=== PATIENT | male | born 1955 | race Caucasian/White ===

== ENCOUNTER 2021-07-07 08:00 | Outpatient (CLI) | payer SELFPAY ==
[2021-07-07 18:42] LABS: BASOPHILS # (AUTO) 0.1 10^3/uL (0.0-0.1); BASOPHILS % (AUTO) 0.7 %; EOSINOPHILS # (AUTO) 0.2 10^3/uL (0.0-0.7); EOSINOPHILS % (AUTO) 3.1 %; HCT - HEMATOCRIT 47.6 % (42.0-52.0); HGB - HEMOGLOBIN 15.8 g/dL (14.0-18.0); LYMPHOCYTES # (AUTO) 2.3 10^3/uL (1.5-3.5); LYMPHOCYTES % (AUTO) 30.4 %; MEAN CORPUSCULAR HEMOGLOBIN 31.3 pg (27.0-31.0); MEAN CORPUSCULAR HGB CONC 33.2 g/dL (32.0-36.0); MEAN CORPUSCULAR VOLUME 94.3 fL (80.0-94.0); MEAN PLATELET VOLUME 10.5 fL (7.4-11.4); MONOCYTES # (AUTO) 0.7 10^3/uL (0.0-1.0); MONOCYTES % (AUTO) 8.7 %; NEUTROPHILS # (AUTO) 4.3 10^3/uL (1.5-6.6); NEUTROPHILS % (AUTO) 56.8 %; PLT - PLATELET COUNT 200 10^3/uL (130-450); RED BLOOD COUNT 5.05 10^6/uL (4.70-6.10); RED CELL DISTRIBUTION WIDTH 13.2 % (12.0-15.0); WHITE BLOOD COUNT 7.5 x10^3/uL (4.8-10.8)
[2021-07-07 19:28] LABS: PSA TOTAL 4.31 ng/mL (0.000-2.000)
[2021-07-07 19:30] LABS: ALBUMIN 4.7 g/dL (3.2-5.5); ALBUMIN/GLOBULIN RATIO 1.3 (1.0-2.2); ALKALINE PHOSPHATASE 72 IU/L (42-121); ALT ALANINE AMINOTRANSFERASE 20 IU/L (10-60); AST ASPARTATE AMINOTRANSFERASE 21 IU/L (10-42); BILIRUBIN,TOTAL 0.6 mg/dL (0.2-1.0); BUN - BLOOD UREA NITROGEN 10 mg/dL (6-20); CALCIUM 9.4 mg/dL (8.5-10.3); CARBON DIOXIDE - CO2 31 mmol/L (21-32); CHLORIDE 101 mmol/L (101-111); CHOL/HDL RATIO 7.6 (<5.0); CHOLESTEROL 258 mg/dL; CREATININE 0.9 mg/dL (0.6-1.2); GFR - MDRD 84 (>89); GLUCOSE 92 mg/dL (70-100); HDL CHOLESTEROL 34 mg/dL; LDL CHOLESTEROL,CALCULATED 162 mg/dL; LDL/HDL RATIO 4.8 (<3.6); POTASSIUM 3.9 mmol/L (3.5-5.0); SODIUM 141 mmol/L (135-145); TOTAL PROTEIN 8.3 g/dL (6.7-8.2); TRIGLYCERIDES 311 mg/dL; VLDL CHOLESTEROL 62 mg/dL
[2021-07-07 19:58] LABS: PSA FREE 0.95 ng/mL (0.16-2.81)
[2021-07-08 10:41] LABS: HEPATITIS C ANTIBODY NON-REACTIVE (NON-REACTIVE)
== END 2021-07-07 23:59 | disposition home or self-care (01) ==
LOC: LAB.R 08:00
PROVIDERS: ATTEND Internal Medicine
DX: N40.0 Benign prostatic hyperplasia without lower urinary tract symptoms (principal); N21.0 Calculus in bladder; R53.83 Other fatigue; Z11.59 Encounter for screening for other viral diseases; K42.9 Umbilical hernia without obstruction or gangrene
CPT/HCPCS: 80053; 80061; 83721; 84153; 84154; 84403; 84443; 85025; 86803

== ENCOUNTER 2022-02-07 11:23 | Emergency (ER) | payer MEDICARE, OTHER ==
[2022-02-07 11:47] LABS: BASOPHILS # (AUTO) 0.1 10^3/uL (0.0-0.1); BASOPHILS % (AUTO) 0.6 %; EOSINOPHILS # (AUTO) 0.2 10^3/uL (0.0-0.7); EOSINOPHILS % (AUTO) 2.8 %; HCT - HEMATOCRIT 46.9 % (42.0-52.0); HGB - HEMOGLOBIN 15.3 g/dL (14.0-18.0); LYMPHOCYTES # (AUTO) 2.6 10^3/uL (1.5-3.5); LYMPHOCYTES % (AUTO) 33.4 %; MEAN CORPUSCULAR HEMOGLOBIN 30.5 pg (27.0-31.0); MEAN CORPUSCULAR HGB CONC 32.6 g/dL (32.0-36.0); MEAN CORPUSCULAR VOLUME 93.6 fL (80.0-94.0); MEAN PLATELET VOLUME 10.3 fL (7.4-11.4); MONOCYTES # (AUTO) 0.6 10^3/uL (0.0-1.0); NEUTROPHILS # (AUTO) 4.3 10^3/uL (1.5-6.6); NEUTROPHILS % (AUTO) 54.9 %; PLT - PLATELET COUNT 177 10^3/uL (130-450); RED BLOOD COUNT 5.01 10^6/uL (4.70-6.10); RED CELL DISTRIBUTION WIDTH 13.1 % (12.0-15.0); WHITE BLOOD COUNT 7.8 x10^3/uL (4.8-10.8)
[2022-02-07] MEDS ORDERED: fentaNYL 100 MCG/2 ML VIAL IVP STA (11:57)
[2022-02-07 12:00] LABS: ALBUMIN 4.3 g/dL (3.2-5.5); ALBUMIN/GLOBULIN RATIO 1.2 (1.0-2.2); BILIRUBIN,TOTAL 0.6 mg/dL (0.2-1.0); CALCIUM 9.5 mg/dL (8.5-10.3); POTASSIUM 3.6 mmol/L (3.5-5.0); TOTAL PROTEIN 7.8 g/dL (6.7-8.2)
--- NOTE | 2022-02-07 12:08 | ED Physician Documentation ---
PD HPI DYSPNEA - Stated complaint Stated Complaint: RIB/CHEST PAIN - Chief complaint Chief Complaint: Cardiac - Additional information Additional information: 66-year-old male presents to the emergency department for evaluation of sudden onset severe epigastric pain that he noticed woke him up from sleep last night. It is nonradiating and described as sharp. He is denying chest pain or shortness of air. This gentleman is a 2 pack/day tobacco user and is not currently being treated by physician for any medical conditions though he was recently evaluated by Dr. Gillespie for an umbilical hernia. Historically his reports that he has a history of bladder stones that have required surgery due to outlet obstruction in the past though none recently. Patient denies any melena or hematochezia. States he had a bowel movement yest erday that was normal for him. No pertinent past surgical history with the exception of the bladder and prostate surgeries Review of Systems Constitutional: reports: Reviewed and negative Nose: reports: Reviewed and negative Throat: reports: Reviewed and negative Cardiac: denies: Chest pain / pressure Respiratory: denies: Dyspnea GI: reports: Reviewed and negative. denies: Nausea, Vomiting, Constipation, Diarrhea, Hematemesis : reports: Reviewed and negative Skin: reports: Reviewed and negative Musculoskeletal: reports: Reviewed and negative PD PAST MEDICAL HISTORY - Present Medications Home Medications: Ambulatory Orders Medication Instructions Recorded Confirmed HYDROcod/ACETAM 5/325 [[place] 5/325] 1 tab PO Q6H PRN #10 tablet 02/07/22 - Allergies Allergies/Adverse Reactions: Allergies Allergy/AdvReac Type Severity Reaction Status Date / Time No Known Drug Allergies Allergy Verified 02/07/22 11:33 PD ED PE NORMAL - General General: Alert and oriented X 3, Well developed/nourished. No: No acute distress (Patient appears quite uncomfortable. Moaning) - HEENT HEENT: Atraumatic, Ears normal, Moist mucous membranes - Neck Neck: Supple, no meningeal sign, No adenopathy - Cardiac Cardiac: RRR, No murmur - Respiratory Respiratory: No respiratory distress - Abdomen Abdomen: Normal bowel sounds, Soft. No: Non tender (Epigastric abdominal pain without guarding or rebound.) - Back Back: No CVA TTP, No spinal TTP - Derm Derm: Normal color, Warm and dry - Extremities Extremities: No deformity, No tenderness to palpate, Normal ROM s pain - Neuro Neuro: Alert and oriented X 3, animal assistant 2-12 intact Eye Opening: Spontaneous Motor: Obeys Commands Verbal: Oriented GCS Score: 15 Results - Vitals Vitals: Vital Signs - 24 hr 02/07/22 02/07/22 02/07/22 11:30 12:13 12:34 Temperature 36.8 C Heart Rate 70 85 84 Respiratory 24 18 19 Rate Blood Pressure 212/122 H 152/100 H 171/113 H O2 Saturation 97 94 93 02/07/22 02/07/22 02/07/22 13:13 13:30 14:30 Temperature Heart Rate 76 81 75 Respiratory 17 18 19 Rate Blood Pressure 161/86 H 166/102 H 140/91 H O2 Saturation 99 95 96 Oxygen O2 Source Room air - EKG (time done) 1130 Rate: Rate (enter#) (85) Rhythm: NSR Hague: RAD Intervals: Normal ME QRS: Normal Ischemia: Normal ST segments Compare to prior EKG: Old EKG unavailable Computer interpretation: Agree with computer - Labs Labs: Laboratory Tests 02/07/22 02/07/22 02/07/22 11:38 11:38 11:38 WBC 7.8 RBC 5.01 Hgb 15.3 Hct 46.9 MCV 93.6 MCH 30.5 MCHC 32.6 RDW 13.1 Plt Count 177 MPV 10.3 Neut # (Auto) 4.3 Lymph # (Auto) 2.6 [place] # (Auto) 0.6 Eos # (Auto) 0.2 Baso # (Auto) 0.1 Absolute Nucleated RBC 0.00 Nucleated RBC % 0.0 Sodium 141 Potassium 3.6 Chloride 100 L Carbon Dioxide 31 Anion Gap 10.0 BUN 7 Creatinine 1.0 Estimated GFR (MDRD) 75 L Glucose 123 H Calcium 9.5 Total Bilirubin 0.6 AST 19 ALT 21 Alkaline Phosphatase 78 Troponin I High Sens 8.6 B-Natriuretic Peptide Total Protein 7.8 Albumin 4.3 Globulin 3.5 Albumin/Globulin Ratio 1.2 Lipase 34 02/07/22 11:38 WBC RBC Hgb Hct MCV MCH MCHC RDW Plt Count MPV Neut # (Auto) Lymph # (Auto) [place] # (Auto) Eos # (Auto) Baso # (Auto) Absolute Nucleated RBC Nucleated RBC % Sodium Potassium Chloride Carbon Dioxide Anion Gap BUN Creatinine Estimated GFR (MDRD) Glucose Calcium Total Bilirubin AST ALT Alkaline Phosphatase Troponin I High Sens B-Natriuretic Peptide 24 Total Protein Albumin Globulin Albumin/Globulin Ratio Lipase - Rads (name of study) CT abd Radiology: Final report received (Gallstones are seen yet without additional CT abnormality of the gallbladder seen. In this patient with epigastric pain please consider follow-up right upper quadrant ultrasound if there is a strong clinical concern for cholecystitis) abd US Radiology: Other (Per development technologist mild gallbladder wall thickening but no pericholecystic fluid. Multiple gallstones seen within the bladder. Negative for acute cholecystitis) PD MEDICAL DECISION MAKING - ED course Complexity details: considered differential, d/w patient, d/w family ED course: 66-year-old male presents to the emergency department for evaluation of sudden onset epigastric abdominal pain no nausea or vomiting no melena. He has not seen a doctor in quite some time though he does have a known umbilical hernia. On presentation the pain was reproducible in the epigastrium. He was modestly hypertensive on presentation 200/100. His blood pressures improved after we gave him a dose of fentanyl Milk of Magnesia and lidocaine for analgesia. CBC and electrolytes did not show any acute worrisome findings. Specifically no LFT abnormalities. A CT of the abdomen showed multiple gallstones without secondary findings to suggest cholecystitis. An abdominal ultrasound was then performed and it does show some mild gallbladder wall thickening but no pericholecystic fluid. Multiple stones within the gallbladder but no obstructing stone seen. I did discuss this finding with the patient and his . They will follow-up with Dr. Gillespie to obtain referral to surgery. We discussed the usual diet associated with cholelithiasis as well as the emergent return precautions. I am prescribing a short course of short-acting opioid pain medication for this patient. I have reviewed the patients ROCKET ENGINE TESTER and no concerning findings were noted. I have discussed that the opioids are for short term therapy only, and will not be refilled from the ED. Departure - Departure Disposition: 01 Home, Self Care Clinical Impression: Cholelithiasis Qualifiers: Cholelithiasis location: gallbladder Cholecystitis presence: without cholecystitis Biliary obstruction: without biliary obstruction Qualified Code(s): K80.20 - Calculus of gallbladder without cholecystitis without obstruction Condition: Stable Record reviewed to determine appropriate education?: Yes Instructions: Gallstones Dc Prescriptions: HYDROcod/ACETAM 5/325 [[place] 5/325] 1 tab PO Q6H PRN #10 tablet PRN Reason: Pain Comments: Maurice you do have gallstones. This is most likely the cause of your upper abd ominal pain this morning. I suspect that you are passing a gallstone as the reason for your symptoms. It is important you speak with Dr. Gillespie in order to obtain a referral to surgery. In order to help manage the symptoms of gallstones diet is very important. You should eat lots of leafy green vexed doubles and any meat that you eat should be lean protein such as boiled chicken. We have sent a prescription for some Hydrocodone also known as [place] to [facility] in [place]. You can take this 1 or twice a day for the abdominal pain however will cause significant constipation so take MiraLAX while taking the hydrocodone. Return to the ER if you have suddenly severe or different abdominal pain, uncontrolled vomiting, any black or bloody stools. I am prescribing a short course of narcotic pain medication for you. These are potentially dangerous and addictive medications that should be used carefully. These medications may constipate you. Take an deim-elv-xwfshyj stool softener (docusate) twice daily with plenty of water while taking these medications. If you go 24 hours without a bowel movement, take rlnp-jph-qyttfmz miralax, per package instructions. Do not drink or drive while taking these medications. If you received narcotic or sedating medications while in the emergency department, do not drive for 24 hours. Store this medication in a safe, secure place and out of reach of children. It is a violation of federal law to give or sell this medication to another person or to use in a manner other than prescribed. The ED will not refill narcotic prescriptions, including prescriptions lost or stolen. To dispose of unwanted medications: 1. [facility] at [address] in [place] has a medication drop box. They accept prescription medications (in pill form) Tuesday through Tuesday 9:00 a.m. to 5:00 p.m. 2. The [facility] Police Department accepts prescription medications (in pill form only) for disposal year round. Call for more information. 3. Contact the [facility] for the next [facility] sponsored prescription drug collection event. , [phone], or [phone]; Note that many narcotic pain relievers also contain Tylenol/acetaminophen. Please ensure that your total dose of acetaminophen from all sources does not exceed 3 g (3000 mg) per day.
--- NOTE | 2022-02-07 12:12 | XRAY Report ---
PROCEDURE: Chest 1 View X-Ray INDICATIONS: Chest pain TECHNIQUE: One view of the chest was acquired. COMPARISON: None. FINDINGS: Surgical changes and devices: None. Lungs and pleura: No pleural effusions or pneumothorax. Lungs are clear. Mediastinum: Mediastinal contours appear normal. Heart size is normal. Bones and chest wall: No suspicious bony lesions. Overlying soft tissues appear unremarkable. IMPRESSION: Portable chest within normal limits for age. Reviewed by: Tomer Villalpando MD on 02/07/2022 11:10 AM [facility] Approved by: Tomer Villalpando MD on 02/07/2022 11:10 AM [facility] Station ID: [id number]
[2022-02-07] MEDS ORDERED: LIDOCAINE VISCOUS 2% 15 ML UDC MM STA (12:16)
[2022-02-07] MEDS ORDERED: MAGNESIUM HYDROXIDE 2,400 MG/30 ML UDC PO STA (12:16)
[2022-02-07] MEDS ORDERED: PANTOPRAZOLE 40 MG VIAL IVP STA (12:16)
[2022-02-07] MEDS ORDERED: SODIUM CHLORIDE 0.9% 1,000 ML IV STA (12:18)
[2022-02-07] MEDS ORDERED: iohexoL-300 100 ML VIAL ONE (12:32)
--- NOTE | 2022-02-07 13:07 | CT Report ---
PROCEDURE: ABDOMEN/PELVIS W INDICATIONS: epigastric abd pain CONTRAST: 100ml omni 300 TECHNIQUE: After the administration of IV contrast, 5 mm thick sections acquired from the diaphragms to the symp hysis. 5 mm thick coronal and sagittal reformats were acquired. For radiation dose reduction, the f ollowing was used: automated exposure control, adjustment of mA and/or kV according to patient size. COMPARISON: Correlation is made with the accompanying chest radiograph, 02/07/2022. FINDINGS: Image quality: Excellent. ABDOMEN: Lung bases: Lung bases are clear. Heart size is normal. Solid organs: Liver and spleen are normal in size and enhancement. Gallbladder demonstrates layerin g gallstones within its lumen. The gallbladder wall thickening or pericholecystic fluid can be seen b y CT. Biliary system is non dilated. Pancreas enhances normally. There is generalized nodularity se en in the left adrenal gland. No delroy adrenal nodules. Kidneys demonstrate normal size and enhancem ent, without hydronephrosis. Peritoneum and bowel: Bowel loops demonstrate normal wall thickness and caliber. No free fluid or a ir. Diverticulosis can be seen, without delroy findings of active diverticulitis. Nodes and vessels: No retroperitoneal or mesenteric adenopathy by size criteria. The IVC demonstrat es normal size. The distal abdominal aorta is minimally aneurysmal, 3.1 cm AP. Atherosclerotic calci fication is seen. Miscellaneous: There are is a moderately sized fat-containing periumbilical hernia. PELVIS: Genitourinary: Bladder wall thickness is normal. Miscellaneous: No inguinal adenopathy. Bilateral fat-containing inguinal hernias are seen, right la rger than left. Bones: No suspicious bony lesions. No vertebral body compression fractures. Focal lower lumbar spi ne degenerative changes are seen, with moderate disc space narrowing at L4-5 and L5. At L5-S1, there is grade 1 anterolisthesis, with associated bilateral L5 pars defects IMPRESSION: Gallstones are seen, yet without additional CT abnormality of the gallbladder seen. In t his patient with epigastric pain, please consider a follow-up right upper quadrant ultrasound, if the re is strong clinical concern for cholecystitis. Minimal abdominal aortic aneurysm, 3.1 cm AP. Incidental note is made of: Fat-containing periumbilical hernia Diverticulosis, without findings of active diverticulitis. Focal lower lumbar spine degenerative change L5 pars defects with grade 1 L5-S1 anterolisthesis Bilateral fat-containing inguinal hernias Reviewed by: Tomer Villalpando MD on 02/07/2022 12:05 PM [facility] Approved by: Tomer Villalpando MD on 02/07/2022 12:05 PM [facility] Station ID: [id number]
[2022-02-07] MEDS ORDERED: iohexoL-300 100 ML VIAL IVP ONE (13:14)
[2022-02-07 14:32] VITALS: BP 140/91
--- NOTE | 2022-02-07 15:39 | Ultrasound Report ---
PROCEDURE: Abdomen Limited INDICATIONS: gallstones on CT; ? acute choley TECHNIQUE: Real-time focused scanning was performed of the abdomen, with image documentation. COMPARISON: Correlation is made with abdominal and pelvis CT, 02/07/2022 FINDINGS: The liver demonstrates enlarged size. The liver demonstrates moderately increased echogen icity, which limits ultrasound sensitivity for detection of masses. Gallstones are seen within the gallbladder neck. Gallbladder wall polyps are seen near the gallbladde r fundus The gallbladder wall is thickened at 5 mm. There is no specific pericholecystic fluid. The s onographic Rios's sign is negative. No biliary ductal dilatation is seen. The common bile duct measures 7 mm. The visualized pancreas is within normal limits. The visualized right kidney is unremarkable. The proximal aorta demonstrates normal caliber. The IVC is patent. IMPRESSION: Gallstones and a thickened gallbladder wall can be seen, without additional specific signs of cholecy stitis. No biliary dilatation. Increased liver echogenicity is seen. This is nonspecific, yet it is most commonly attributed to fatt y infiltration. Note: Concordant preliminary findings given by the clinical trials assistant upon the completion of the examination to Jennifer Delaney. Reviewed by: Tomer Villalpando MD on 02/07/2022 2:38 PM [facility] Approved by: Tomer Villalpando MD on 02/07/2022 2:38 PM [facility] Station ID: [id number]
== END 2022-02-07 15:36 | disposition home or self-care (01) ==
LOC: ED 11:23
DX: K80.20 Calculus of gallbladder without cholecystitis without obstruction (principal); F17.200 Nicotine dependence, unspecified, uncomplicated
CPT/HCPCS: 36415; 71045; 74177; 76705; 80053; 83690; 83880; 84484; 85025; 93005; 96374; 96375; 99284; A9270; Q9967

== ENCOUNTER 2022-02-15 12:44 | Emergency (ER) | payer MEDICARE ==
[2022-02-15 13:44] LABS: BASOPHILS % (AUTO) 0.5 %; EOSINOPHILS # (AUTO) 0.1 10^3/uL (0.0-0.7); EOSINOPHILS % (AUTO) 1.2 %; HCT - HEMATOCRIT 44.9 % (42.0-52.0); HGB - HEMOGLOBIN 14.7 g/dL (14.0-18.0); LYMPHOCYTES # (AUTO) 1.1 10^3/uL (1.5-3.5); LYMPHOCYTES % (AUTO) 26.2 %; MEAN CORPUSCULAR HEMOGLOBIN 30.6 pg (27.0-31.0); MEAN CORPUSCULAR HGB CONC 32.7 g/dL (32.0-36.0); MEAN CORPUSCULAR VOLUME 93.3 fL (80.0-94.0); MEAN PLATELET VOLUME 10.3 fL (7.4-11.4); MONOCYTES # (AUTO) 0.6 10^3/uL (0.0-1.0); MONOCYTES % (AUTO) 14.3 %; NEUTROPHILS # (AUTO) 2.5 10^3/uL (1.5-6.6); NEUTROPHILS % (AUTO) 57.6 %; PLT - PLATELET COUNT 144 10^3/uL (130-450); RED BLOOD COUNT 4.81 10^6/uL (4.70-6.10); RED CELL DISTRIBUTION WIDTH 12.9 % (12.0-15.0); WHITE BLOOD COUNT 4.3 x10^3/uL (4.8-10.8)
[2022-02-15 13:58] LABS: ALBUMIN 4.3 g/dL (3.2-5.5); ALBUMIN/GLOBULIN RATIO 1.3 (1.0-2.2); BILIRUBIN,TOTAL 0.5 mg/dL (0.2-1.0); CALCIUM 8.9 mg/dL (8.5-10.3); TOTAL PROTEIN 7.6 g/dL (6.7-8.2)
--- NOTE | 2022-02-15 15:55 | ED Physician Documentation ---
PD HPI ABD PAIN - Stated complaint Stated Complaint: CHEST & BACK PX - Chief complaint Chief Complaint: Abd Pain - History obtained from History obtained from: Patient - History of Present Illness Timing - onset: How many weeks ago (1) Timing - duration: Weeks (1) Timing - details: Gradual onset, Intermittant Pain level max: 8 Pain level now: 0 Quality: Pain Location: RUQ, Epigastric Radiation: No: Chest, , Lower back, Left flank, Left shoulder, Right flank, Right shoulder, Upper back Improved by: Meds (vicodin) Worsened by: Eating Associated symptoms: No: Fever, Nausea, Vomiting, Hematemesis, Diarrhea, Constipation, Hematochezia, Dysuria - Additional information Additional information: Patient is a 66-year-old male who complains of epigastric abdominal pain. Worse with eating and drinking. Better with hydrocodone. He was diagnosed with gallstones about 10 days ago. He has a referral for surgery but has not seen them yet. He complains of continued abdominal pain. No fevers. No chills. No vomiting. Review of Systems Ten Systems: 10 systems reviewed and negative Constitutional: denies: Fever, Chills Nose: denies: Rhinorrhea / runny nose, Congestion Throat: denies: Sore throat Cardiac: denies: Chest pain / pressure, Palpitations Respiratory: denies: Dyspnea, Cough, Wheezing Skin: denies: Rash Musculoskeletal: denies: Neck pain, Back pain Neurologic: denies: Headache PD PAST MEDICAL HISTORY - Past Medical History Past Medical History: No - Present Medications Home Medications: Ambulatory Orders Medication Instructions Recorded Confirmed HYDROcod/ACETAM 5/325 [[place] 5/325] 1 tab PO Q6H PRN #10 tablet 02/07/22 Esomeprazole Magnesium [Nexium] 40 mg PO DAILY #30 cap 02/15/22 Famotidine [Pepcid] 20 mg PO BID #60 tablet 02/15/22 HYDROcod/ACETAM 5/325 [[place] 5/325] 1 - 2 ea PO Q6H PRN #14 tablet 02/15/22 Sucralfate [Carafate] 1 gm PO ACHS #60 tablet 02/15/22 - Allergies Allergies/Adverse Reactions: Allergies Allergy/AdvReac Type Severity Reaction Status Date / Time No Known Drug Allergies Allergy Verified 02/15/22 12:49 - Living Situation Living Situation: reports: With family Living Arrangement: reports: At home - Social History Does the pt smoke?: Yes Smoking Status: Current every day smoker PD ED PE NORMAL - Vitals Vital signs reviewed: Yes - General General: Alert and oriented X 3, No acute distress - HEENT HEENT: Moist mucous membranes - Neck Neck: Supple, no meningeal sign - Cardiac Cardiac: RRR, Strong equal pulses - Respiratory Respiratory: No respiratory distress, Clear bilaterally - Abdomen Abdomen: Soft, Non tender, Non distended - Derm Derm: Warm and dry - Neuro Neuro: Alert and oriented X 3 - Psych Psych: Normal mood, Normal affect Results - Vitals Vitals: Vital Signs - 24 hr 02/15/22 02/15/22 02/15/22 12:49 15:45 16:03 Temperature 36.5 C Heart Rate 100 94 88 Respiratory 16 18 16 Rate Blood Pressure 160/90 H 147/91 H 123/75 O2 Saturation 94 96 98 Oxygen O2 Source Room air - Labs Labs: Laboratory Tests 02/15/22 02/15/22 13:40 13:40 WBC 4.3 L RBC 4.81 Hgb 14.7 Hct 44.9 MCV 93.3 MCH 30.6 MCHC 32.7 RDW 12.9 Plt Count 144 MPV 10.3 Neut # (Auto) 2.5 Lymph # (Auto) 1.1 L [place] # (Auto) 0.6 Eos # (Auto) 0.1 Baso # (Auto) 0.0 Absolute Nucleated RBC 0.00 Nucleated RBC % 0.0 Sodium 139 Potassium 4.0 Chloride 99 L Carbon Dioxide 31 Anion Gap 9.0 BUN 10 Creatinine 1.0 Estimated GFR (MDRD) 75 L Glucose 119 H Calcium 8.9 Total Bilirubin 0.5 AST 25 ALT 30 Alkaline Phosphatase 76 Total Protein 7.6 Albumin 4.3 Globulin 3.3 Albumin/Globulin Ratio 1.3 Lipase 32 PD MEDICAL DECISION MAKING - ED course Complexity details: reviewed old records, re-evaluated patient, considered differential, d/w patient ED course: Patient is well-appearing, nontoxic. Afebrile. No acute findings on laboratory testing. Reviewed his prior records. History could be compatible with gastritis versus GERD as well. He did seem to improve with a GI cocktail last visit. He is currently asymptomatic so cannot trial this again. We will place him on Carafate, an H2 beht and PPI for home. We will also prescribe pain medication for home. No evidence of cholecystitis on laboratory testing or clinically. Abdomen is soft, nontender nondistended. Negative Rios sign. We will have him follow-up with his doctor for further care. Patient counseled regarding signs and symptoms for which I believe and urgent re-evaluation would be necessary. Patient with good understanding of and agreement to plan and is comfortable going home at this time This document was made in part using voice recognition software. While efforts are made to proofread this document, sound alike and grammatical errors may occur. Departure - Departure Disposition: Home, Self Care Clinical Impression: Cholelithiasis Qualifiers: Cholelithiasis location: gallbladder Cholecystitis presence: without cholecystitis Biliary obstruction: with biliary obstruction Qualified Code(s): K80.21 - Calculus of gallbladder without cholecystitis with obstruction Abdominal pain Qualifiers: Abdominal location: epigastric Qualified Code(s): R10.13 - Epigastric pain Condition: Good Instructions: ED Abdominal Pain Gallstone Poss, ED GERD, ED Gallstone W Biliary Colic Follow-Up: Marina Gillespie MD [Provider Admit Priv/Credential] - Within 1 week Prescriptions: Sucralfate [Carafate] 1 gm PO ACHS #60 tablet Esomeprazole Magnesium [Nexium] 40 mg PO DAILY #30 cap HYDROcod/ACETAM 5/325 [[place] 5/325] 1 - 2 ea PO Q6H PRN #14 tablet PRN Reason: Pain Famotidine [Pepcid] 20 mg PO BID #60 tablet Comments: Please follow-up with your doctor for further care. Return if you worsen. We will place you on medication for your stomach as well in case this could be gastritis versus an ulcer. Please avoid fatty foods, fried foods, spicy foods, cigarettes, alcohol, caffeine. Avoid butter, cheese, oil. Your prescriptions were sent to the [facility] pharmacy. Your doctor may want to refer you for an endoscopy as well to evaluate the lining of your stomach. I am prescribing a short course of narcotic pain medication for you. These are potentially dangerous and addictive medications that should be used carefully. These medications may constipate you. Take an yhbu-voi-ufwkjqx stool softener (docusate) twice daily with plenty of water while taking these medications. If you go 24 hours without a bowel movement, take yuba-wbs-cxycaln miralax, per package instructions. Do not drink or drive while taking these medications. If you received narcotic or sedating medications while in the emergency department, do not drive for 24 hours. Store this medication in a safe, secure place and out of reach of children. It is a violation of federal law to give or sell this medication to another person or to use in a manner other than prescribed. The ED will not refill narcotic prescriptions, including prescriptions lost or stolen. To dispose of unwanted medications: 1. [facility] [address] in [place] has a medication drop box. They accept prescription medications (in pill form) Tuesday through Tuesday 9:00 a.m. to 5:00 p.m. 2. The [facility] Department accepts prescription medications (in pill form only) for disposal year round. Call for more information. 3. Contact the [facility] for the next [facility] sponsored prescription drug collection event. , [phone], or [phone]; Discharge Date/Time: 02/15/22 16:05
[2022-02-15 16:05] VITALS: BP 123/75
== END 2022-02-15 16:05 | disposition home or self-care (01) ==
LOC: ED 12:44
DX: K80.21 Calculus of gallbladder without cholecystitis with obstruction (principal); F17.200 Nicotine dependence, unspecified, uncomplicated
CPT/HCPCS: 36415; 80053; 83690; 85025; 99282; 99284

== ENCOUNTER 2022-08-15 22:57 | Emergency (ER) | payer MEDICARE ==
[2022-08-15] MEDS ORDERED: MORPHINE 2 MG/ML CARPUJECT IVP STA (23:40)
[2022-08-15] MEDS ORDERED: ONDANSETRON 4 MG/2 ML VIAL IVP STA (23:40)
[2022-08-15 23:51] LABS: BASOPHILS # (AUTO) 0.1 10^3/uL (0.0-0.1); BASOPHILS % (AUTO) 0.6 %; EOSINOPHILS # (AUTO) 0.3 10^3/uL (0.0-0.7); EOSINOPHILS % (AUTO) 2.5 %; HCT - HEMATOCRIT 45.4 % (42.0-52.0); HGB - HEMOGLOBIN 14.7 g/dL (14.0-18.0); LYMPHOCYTES # (AUTO) 2.6 10^3/uL (1.5-3.5); MEAN CORPUSCULAR HEMOGLOBIN 29.8 pg (27.0-31.0); MEAN CORPUSCULAR HGB CONC 32.4 g/dL (32.0-36.0); MEAN CORPUSCULAR VOLUME 91.9 fL (80.0-94.0); MEAN PLATELET VOLUME 10.4 fL (7.4-11.4); MONOCYTES # (AUTO) 0.7 10^3/uL (0.0-1.0); MONOCYTES % (AUTO) 6.8 %; NEUTROPHILS % (AUTO) 65.6 %; PLT - PLATELET COUNT 209 10^3/uL (130-450); RED BLOOD COUNT 4.94 10^6/uL (4.70-6.10); RED CELL DISTRIBUTION WIDTH 13.2 % (12.0-15.0); WHITE BLOOD COUNT 10.7 x10^3/uL (4.8-10.8)
--- OUTSIDE RECORDS SUMMARY | 2022-08-15 23:51 | EXTERNAL MEDICAL SUMMARY RPT | Continuity of Care Document ---
Author Name Unknown Address [address] [place] [address] Phone Organization [facility] Address [address] [phone] Phone Problems date description facility 2022-07-05 09:33 Calculus of gallblad nereyda without cholecystitis without obstru Located Within [facility] 2022-07-05 09:36 [facility]
[2022-08-15 23:55] LABS: INR 0.9 (0.8-1.2); PT - PROTHROMBIN TIME 10.4 secs (9.9-12.6)
[2022-08-16 00:03] LABS: ALBUMIN 3.9 g/dL (3.2-5.5); BILIRUBIN,TOTAL 0.6 mg/dL (0.2-1.0); CALCIUM 8.9 mg/dL (8.5-10.3); CREATININE 1.1 mg/dL (0.6-1.2); POTASSIUM 3.7 mmol/L (3.5-5.0); TOTAL PROTEIN 7.8 g/dL (6.7-8.2)
[2022-08-16 00:52] LABS: BILIRUBIN,URINE NEGATIVE (NEGATIVE); GLUCOSE, URINE (UA) 100 mg/dL (NEGATIVE); KETONES,URINE (UA) NEGATIVE (NEGATIVE); OCCULT BLOOD,URINE LARGE (NEGATIVE); UROBILINOGEN,URINE 0.2 (NORMAL) E.U./dL (NORMAL)
[2022-08-16 00:55] LABS: CLARITY,URINE BLOODY (CLEAR)
[2022-08-16 01:00] LABS: BACTERIA,URINE None Seen /HPF (None Seen); RBC,URINE TNTC /HPF (0-5); SQUAMOUS EPITHELIAL CELL,UR NONE SEEN (<= Few); WBC,URINE 0-3 /HPF (0-3)
[2022-08-16 01:01] LABS: LEUKOCYTE ESTERASE, URINE NEGATIVE (NEGATIVE); NITRITE,URINE NEGATIVE (NEGATIVE)
--- NOTE | 2022-08-16 01:10 | ED Physician Documentation ---
History of Present Illness - Stated complaint Stated Complaint: MALE - Chief complaint Chief Complaint: General - History obtained from History obtained from: Patient - Additonal information Additional information: Patient is a 66-year-old male presenting for evaluation of gross hematuria and difficulty with urinating starting this afternoon. Patient states that he has had this issue in the past and has seen urology but this was back when he lived in [place]. He states that he has a history of bladder stones. Reports having a prior prostate surgery. He does not take aspirin or blood thinners.He states that in the past he has had Hwang catheters placed and has required bladder irrigation as well as cystoscopies. He reports that at times he has been able to go home with a catheter in place. He denies fever, chest pain, dizziness, vomiting.He feels the urge to urinate but has not been able to do so. Review of Systems Constitutional: denies: Fever Cardiac: denies: Chest pain / pressure Respiratory: denies: Dyspnea GI: denies: Vomiting : reports: Hematuria Musculoskeletal: denies: Back pain PD PAST MEDICAL HISTORY - Present Medications Home Medications: Ambulatory Orders Medication Instructions Recorded Confirmed HYDROcod/ACETAM 5/325 [Freeman 5/325] 1 tab PO Q6H PRN #10 tablet 02/07/22 Esomeprazole Magnesium [Nexium] 40 mg PO DAILY #30 cap 02/15/22 Famotidine [Pepcid] 20 mg PO BID #60 tablet 02/15/22 HYDROcod/ACETAM 5/325 [Freeman 5/325] 1 - 2 ea PO Q6H PRN #14 tablet 02/15/22 Sucralfate [Carafate] 1 gm PO ACHS #60 tablet 02/15/22 - Allergies Allergies/Adverse Reactions: Allergies Allergy/AdvReac Type Severity Reaction Status Date / Time No Known Drug Allergies Allergy Verified 08/15/22 23:19 - Social History Does the pt smoke?: Yes Smoking Status: Current every day smoker PD ED PE NORMAL - General General: Alert and oriented X 3, Well developed/nourished, Other (Appears uncomfortable) - HEENT HEENT: Atraumatic - Neck Neck: Supple, no meningeal sign - Cardiac Cardiac: RRR, No murmur - Respiratory Respiratory: No respiratory distress, Clear bilaterally - Abdomen Abdomen: Normal bowel sounds, Soft, Non distended, Other (Suprapubic tenderness) - Derm Derm: Warm and dry - Neuro Neuro: Normal speech Results - Vitals Vitals: Vital Signs - 24 hr 08/15/22 08/16/22 08/16/22 23:15 03:20 05:43 Temperature 36.7 C Heart Rate 107 H 90 80 Respiratory 22 18 18 Rate Blood Pressure 174/94 H 140/85 H 124/67 O2 Saturation 94 92 92 If not protocol : Oxygen Flow, liters/minute 08/16/22 08/16/22 08/16/22 07:08 09:00 11:00 Temperature Heart Rate 85 60 Respiratory 16 18 Rate Blood Pressure 98/59 L 111/60 O2 Saturation 97 87 L 99 If not protocol 2 : Oxygen Flow, liters/minute 08/16/22 13:14 Temperature Heart Rate 55 L Respiratory 18 Rate Blood Pressure 100/58 L O2 Saturation 100 If not protocol : Oxygen Flow, liters/minute Oxygen O2 Source Room air - Labs Labs: Laboratory Tests 08/15/22 08/15/22 08/15/22 23:40 23:40 23:40 WBC 10.7 RBC 4.94 Hgb 14.7 Hct 45.4 MCV 91.9 MCH 29.8 MCHC 32.4 RDW 13.2 Plt Count 209 MPV 10.4 Neut # (Auto) 7.0 H Lymph # (Auto) 2.6 [place] # (Auto) 0.7 Eos # (Auto) 0.3 Baso # (Auto) 0.1 Absolute Nucleated RBC 0.00 Nucleated RBC % 0.0 PT 10.4 INR 0.9 Sodium 142 Potassium 3.7 Chloride 101 Carbon Dioxide 26 Anion Gap 15.0 H BUN 12 Creatinine 1.1 Estimated GFR (MDRD) 67 L Glucose 148 H Calcium 8.9 Total Bilirubin 0.6 AST 19 ALT 17 Alkaline Phosphatase 73 Total Protein 7.8 Albumin 3.9 Globulin 3.9 Albumin/Globulin Ratio 1.0 Urine Color Urine Clarity Urine pH Ur Specific [place] Urine Protein Urine Glucose (UA) Urine Ketones Urine Occult Blood Urine Nitrite Urine Bilirubin Urine Urobilinogen Ur Leukocyte Esterase Urine RBC Urine WBC Ur Squamous Epith Cells Urine Bacteria Ur Microscopic Review Urine Culture Comments 08/16/22 08/16/22 00:01 07:19 WBC RBC Hgb 13.5 L Hct 41.6 L MCV MCH MCHC RDW Plt Count MPV Neut # (Auto) Lymph # (Auto) [place] # (Auto) Eos # (Auto) Baso # (Auto) Absolute Nucleated RBC Nucleated RBC % PT INR Sodium Potassium Chloride Carbon Dioxide Anion Gap BUN Creatinine Estimated GFR (MDRD) Glucose Calcium Total Bilirubin AST ALT Alkaline Phosphatase Total Protein Albumin Globulin Albumin/Globulin Ratio Urine Color RED/BLOODY Urine Clarity BLOODY Urine pH 8.0 H Ur Specific [place] 1.025 Urine Protein Urine Glucose (UA) 100 H Urine Ketones NEGATIVE Urine Occult Blood LARGE H Urine Nitrite NEGATIVE Urine Bilirubin NEGATIVE Urine Urobilinogen 0.2 (NORMAL) Ur Leukocyte Esterase NEGATIVE Urine RBC TNTC H Urine WBC 0-3 Ur Squamous Epith Cells NONE SEEN Urine Bacteria None Seen Ur Microscopic Review INDICATED Urine Culture Comments NOT INDICATED PD Medical Decision Making - ED course Complexity details: reviewed results, re-evaluated patient, d/w patient, d/w family ED course: Pt with h/o bladder stones presenting with gross hematuria and difficulty with urinating. 3 way hwang inserted and large amount of clots were manually irrigated . CBI started and pt feeling much better. VSS. Labs reviewed including CBC, chemistries, coags without significant findings. Pt did also receive IV morphine x 2 and has been comfortable throughout CBI. UA negative for infection. CT abd/pelvis without contrast which I reviewed is negative for stone but did show large clots in the bladder. This was done prior to irrigation in the ED. We have paused CBI to see whether bleeding will restart. Repeat H/H ordered and pt signed out to oncoming provider at shift change. 0308 - MedSurg charge nurse was able to come in and help with bladder irrigation. She was able to manually irrigate out numerous clots. 0630 - Urine in catheter tubing is faint pink so have asked nursing staff to stop CBI and we will reassess. 0700 - Patient reports feeling well, urine is [place]-A[place] colored. Denies any discomfort. Patient signed out to Dr. Leon at shift change. Plan for repeat H&H and reassessment of symptoms as well as urine color. Departure - Departure Disposition: 02 Transfer Acute Care Hosp Clinical Impression: Gross hematuria Condition: Serious
--- NOTE | 2022-08-16 01:19 | CT Report ---
PROCEDURE: ABDOMEN/PELVIS WO INDICATIONS: gross hematuria TECHNIQUE: Noncontrast 5 mm thick sections acquired from the diaphragms to the symphysis. 5 mm coronal and sagi ttal reformats were then performed. For radiation dose reduction, the following was used: automated exposure control, adjustment of mA and/or kV according to patient size. COMPARISON: None. FINDINGS: Image quality: Excellent. Lung bases:There are lobulated nodules within the right lower lobe measuring 0.8 cm in series 4 imag e 11 and in the right middle lobe measuring 0.9 cm on series 4 image 21. Heart: Heart is normal in size. URINARY: Right Kidney and Ureter: No stones or hydronephrosis. No hydroureter. Left Kidney and Ureter: No stones or hydronephrosis. No hydroureter. Bladder:There is a Sepulveda catheter within a distended urinary bladder. Dependent high density is demo nstrated within the bladder consistent with blood clot. No calcified stones. ABDOMEN: Liver: Noncontrast evaluation of the liver demonstrates no discrete mass. Gallbladder:Gallbladder appears surgically absent. There is a hepatic cyst or fluid collection along the gallbladder fossa measuring up to 3.7 cm. Biliary ducts: No biliary ductal dilatation. Pancreas: Unremarkable. Spleen: Normal in size. Adrenal Glands: No adrenal nodules. Stomach and Bowel: Stomach, small bowel loops, and colon are normal in caliber and wall thickness. N o pericecal inflammatory changes to suggest appendicitis. There is colonic diverticulosis without acu te diverticulitis. Peritoneum: No abnormal intraperitoneal fluid. No free air. Ventral Wall: No hernia. Abdominal Nodes: No retroperitoneal or mesenteric adenopathy by size criteria. Vessels: Aorta and inferior vena cava are normal in size. PELVIS: Pelvic Organs: Unremarkable. Pelvic Nodes: No enlarged lymph nodes. Miscellaneous: No inguinal hernias identified. Bones: Visualized osseous structures demonstrate no suspicious focal lesions. IMPRESSION: 1. No hydronephrosis or nephrolithiasis. 2. Distention of the urinary bladder with a large amount of blood clot. An underlying mass cannot be excluded. Reviewed by: Jean-Paul Almeida MD on 08/16/2022 1:18 AM PDT Approved by: Jean-Paul Almeida MD on 08/16/2022 1:18 AM PDT Station ID: [id number]
[2022-08-16] MEDS ORDERED: MORPHINE 2 MG/ML CARPUJECT IVP STA ×2 (03:07→08:05)
[2022-08-16 07:22] LABS: HCT - HEMATOCRIT 41.6 % (42.0-52.0); HGB - HEMOGLOBIN 13.5 g/dL (14.0-18.0)
--- NOTE | 2022-08-16 07:31 | ED Physician Documentation ---
ED Addendum - Addendum Addendum: 08/16/22 07:[address] Herr at 7 AM shift change. This is a 66-year-old gentleman with history of bladder stones and presented with gross hematuria with clot on CT. He had been undergoing CBI overnight but it was stopped about an hour ago. He feels comfortable now, his main complaint is that he would like some ice chips. He says that he would refuse cystoscopy if offered because of the pain associated with it. "I would rather ." 08/16/22 07:54 With CBI paused the urine became completely opaque blood again. I will call [facility] for potential transfer for urology consultation. That said I reiterated that the reason to send him up there would be for potential cystoscopy and he would only agree to go if he could be sedated for that. 08/16/22 09:04 [facility] had no urologist [facility]. At this time I did speak with Dr. Saw Barrios, urology in [place] and he is happy to see the patient but defers to the hospitalist for admit. He does note that given the circumstances the cystoscopy would be done in the OR with anesthesia. 08/16/22 14:20 Notified by the RN that his catheter had gotten kinked the way he was sitting and he is now reobstructed and they could not continue CBI. I hand irrigated him with significant clot return and the catheter was running again. 08/16/22 17:50 Care to the evening ED emergency physician at shift change. Still no bed available at the tertiary facility.
[2022-08-16] MEDS ORDERED: LORazepam 2 MG/ML VIAL IVP STA ×2 (08:06→15:42)
[2022-08-16] MEDS: NICOTINE 14 MG PATCH TOP SCH ×2 (09:22→09:24)
[2022-08-16] MEDS: MORPHINE 2 MG/ML CARPUJECT IVP PRN ×2 (14:02→18:52)
[2022-08-16 18:51] LABS: HCT - HEMATOCRIT 43.7 % (42.0-52.0); HGB - HEMOGLOBIN 13.6 g/dL (14.0-18.0)
[2022-08-16] MEDS: LORazepam 2 MG/ML VIAL IVP PRN (21:40)
[2022-08-17] MEDS: MORPHINE 2 MG/ML CARPUJECT IVP PRN ×3 (00:31→14:15)
[2022-08-17] MEDS ORDERED: HYDROmorphone 1 MG/ML CARPUJECT IVP STA (05:29)
[2022-08-17] MEDS: LORazepam 2 MG/ML VIAL IVP PRN ×2 (06:14→15:32)
[2022-08-17 07:24] LABS: BASOPHILS % (AUTO) 0.3 %; EOSINOPHILS % (AUTO) 0.2 %; HCT - HEMATOCRIT 39.4 % (42.0-52.0); HGB - HEMOGLOBIN 12.2 g/dL (14.0-18.0); LYMPHOCYTES # (AUTO) 1.6 10^3/uL (1.5-3.5); LYMPHOCYTES % (AUTO) 11.1 %; MEAN CORPUSCULAR HEMOGLOBIN 29.9 pg (27.0-31.0); MEAN CORPUSCULAR VOLUME 96.6 fL (80.0-94.0); MEAN PLATELET VOLUME 10.5 fL (7.4-11.4); MONOCYTES # (AUTO) 0.9 10^3/uL (0.0-1.0); MONOCYTES % (AUTO) 6.3 %; NEUTROPHILS # (AUTO) 11.9 10^3/uL (1.5-6.6); NEUTROPHILS % (AUTO) 81.6 %; PLT - PLATELET COUNT 203 10^3/uL (130-450); RED BLOOD COUNT 4.08 10^6/uL (4.70-6.10); RED CELL DISTRIBUTION WIDTH 13.5 % (12.0-15.0); WHITE BLOOD COUNT 14.6 x10^3/uL (4.8-10.8)
[2022-08-17] MEDS ORDERED: HYDROGEN PEROXIDE 3% 473 ML BOTTLE TOP STA ×2 (08:00→09:06)
--- NOTE | 2022-08-17 08:05 | ED Physician Documentation ---
ED Addendum - Addendum Addendum: 08/17/22 08:04 Nursing reports the patient is requiring a lot of hand aspiration and irrigation to remove large clots from the bladder. He will then flow okay for short period and then read clogged. They are asking for other options. We will check Sepulveda size and see if it is adequately large. We will replace with larger if needed. We can try instilling all 1-4 solution of peroxide and saline in 200 mL amounts and have them roll side to side and see if it loosens up and breaks up the clot so they come out easier. It sounds like he has residual clots and there that keep clogging the way. We are still hoping on transfer for urology to [facility] today. They were thinking they have beds.
[2022-08-17] MEDS: NICOTINE 14 MG PATCH TOP SCH (09:47)
--- NOTE | 2022-08-17 13:58 | ED Physician Documentation ---
ED Addendum - Addendum Addendum: 08/17/22 13:57 Received call from [facility] that they have beds available. I talked with Dr. Crews the hospitalist who accepts the patient in transfer. We reviewed the patient's history course and labs and treatments thus far. He is excepting the patient. Urology had been consulted yesterday. Disposition: The patient is transferred to acute care hospital in stable condition. Diagnoses: 1. Acute urinary retention due to clot 2. Gross hematuria
[2022-08-17 15:29] VITALS: BP 122/59
== END 2022-08-17 15:45 | disposition short-term general hospital (02) ==
LOC: ED 22:57
DX: R31.0 Gross hematuria (principal); N32.89 Other specified disorders of bladder; R33.8 Other retention of urine; F17.200 Nicotine dependence, unspecified, uncomplicated
CPT/HCPCS: 36415; 51700; 51798; 74176; 80053; 81001; 85014; 85018; 85025; 85610; 96374; 96375; 96376; 99285; A9270; J1170; J2060; 81003; 87086

== ENCOUNTER 2022-08-17 15:44 | Outpatient (CLI) | payer MEDICARE | END 2022-08-17 15:45 | disposition short-term general hospital (02) | LOC: EMS 15:44 | PROVIDERS: ATTEND Emergency Medicine | DX: N32.89 Other specified disorders of bladder (principal); R31.9 Hematuria, unspecified; R30.9 Painful micturition, unspecified; R30.0 Dysuria; R39.89 Other symptoms and signs involving the genitourinary system | CPT/HCPCS: A0425; A0426 ==

== ENCOUNTER 2023-12-06 16:24 | Outpatient (CLI) | payer MEDICARE ==
--- NOTE | 2023-12-06 18:14 | XRAY Report ---
PROCEDURE: Chest 2V INDICATIONS: DYSPNEA TECHNIQUE: 2 views of the chest were acquired. COMPARISON: Chest x-ray 02/07/2022 FINDINGS: Surgical changes and devices: None. Lungs and pleura: No pleural effusions or pneumothorax. Lungs are clear. Mediastinum: Mediastinal contours appear normal. Heart size is normal. Bones and chest wall: No suspicious bony lesions. Overlying soft tissues appear unremarkable. IMPRESSION: No acute cardiopulmonary process. Reviewed by: Geovanna Hercules MD on 12/06/2023 6:12 PM PDT Approved by: Geovanna Hercules MD on 12/06/2023 6:12 PM PDT Station ID: [id number]
== END 2023-12-06 16:25 | disposition home or self-care (01) ==
LOC: DI 16:24
PROVIDERS: ATTEND Internal Medicine
DX: R06.00 Dyspnea, unspecified (principal)